=== PATIENT | female | born 1985 | race Caucasian/White ===

== ENCOUNTER 2018-06-04 03:22 | Emergency (ER) | payer MEDICAID ==
[~2018-06-04] VITALS: Ht 172.7 cm; Wt 131.5 kg
[2018-06-04 03:25] VITALS: BP_SYST 122
[2018-06-04] MEDS ORDERED: MORPHINE 4 MG/ML INJ. SYRINGE IVP ONE ×2 (03:30→03:45)
[2018-06-04] MEDS ORDERED: LORazepam 2 MG/ML VIAL (FOR ER USE) IVP ONE (03:45)
== END 2018-06-04 05:05 | disposition home or self-care (01) ==
LOC: SED 03:22
DX: S43.005A Unspecified dislocation of left shoulder joint, initial encounter (principal); W10.9XXA Fall (on) (from) unspecified stairs and steps, initial encounter; Y93.89 Activity, other specified; Y92.009 Unspecified place in unspecified non-institutional (private) residence as the place of occurrence of the external cause; Y99.8 Other external cause status
CPT/HCPCS: 23650; 73030; 99285; J2060; J2270

== ENCOUNTER 2021-08-09 02:58 | Emergency (ER) | payer BC, MEDICAID ==
[~2021-08-09] VITALS: Ht 172.7 cm; Wt 131.5 kg
[2021-08-09 02:58] VITALS: BP_SYST 109
[2021-08-09] MEDS ORDERED: MORPHINE 4 MG INJ. 4 MG/ML VIAL ONE (04:00)
[2021-08-09] MEDS ORDERED: MORPHINE 4 MG INJ. 4 MG/ML VIAL IM ONE (04:00)
[2021-08-09] MEDS ORDERED: DIAZEPAM 5 MG TABLET (VALIUM) PO ONE (04:30)
[2021-08-09 04:46] LABS: BASOPHILS # (AUTO) 0.1 K/uL (0.0-0.2); BASOPHILS % (AUTO) 0.9 % (0.0-2.0); EOSINOPHILS # (AUTO) 0.1 K/uL (0.0-0.4); EOSINOPHILS % (AUTO) 0.8 % (0.0-4.0); HEMATOCRIT 36.8 % (36-48); HEMOGLOBIN 11.4 g/dL (12.0-16.0); LYMPHOCYTES # (AUTO) 1.9 K/uL (1.0-5.5); LYMPHOCYTES % (AUTO) 15.4 % (20.5-51.5); MEAN CORPUSCULAR HEMOGLOBIN 22 pg (27-31); MEAN CORPUSCULAR HGB CONC 31 % (32-36); MEAN CORPUSCULAR VOLUME 70 fL (79.0-98.0); MONOCYTES # (AUTO) 0.7 K/uL (0.0-1.0); MONOCYTES % (AUTO) 5.6 % (1.7-9.3); NEUTROPHILS # (AUTO) 9.4 K/uL (1.8-7.7); NEUTROPHILS % (AUTO) 77.3 % (40.0-70.0); PLATELET COUNT (AUTO) 350 K/uL (130-430); RED BLOOD CELL COUNT(AUTO) 5.25 MIL/uL (4.2-6.2); RED CELL DISTRIBUTION WIDTH 17.9 % (9.0-15.0); WHITE BLOOD COUNT (AUTO) 12.2 K/uL (4.8-10.8)
[2021-08-09 05:04] LABS: CALCIUM 8.9 mg/dL (8.4-11.0); CREATININE 0.83 mg/dL (0.55-1.30); POTASSIUM 3.8 mmol/L (3.5-5.1)
[2021-08-09 05:08] LABS: PHOSPHORUS 3.7 mg/dL (2.7-4.5)
[2021-08-09] MEDS ORDERED: KETOROLAC TROMETHAMINE 30 MG VIAL IM ONE (05:30)
[2021-08-09] MEDS ORDERED: NACL 0.9% 1,000 ML IV ONE (06:15)
[2021-08-09] MEDS ORDERED: IBUP-1971 PO (06:33)
[2021-08-09] MEDS ORDERED: CYCL10TA24 PO (06:33)
[2021-08-09] MEDS ORDERED: HYDR-3917 PO (06:33)
[2021-08-09] MEDS ORDERED: fentaNYL CITRATE/PF 100 MCG/2 ML AMP IM ONE (06:45)
[2021-08-09 06:50] VITALS: BP_SYST 119
[2021-08-09 07:31] LABS: BILIRUBIN,URINE NEGATIVE (NEGATIVE); BLOOD, URINE 2+ (NEGATIVE); CLARITY/URINE TURBID (CLEAR); COLOR,URINE YELLOW (YELLOW); GLUCOSE,URINE NEGATIVE (NEGATIVE); KETONES,URINE NEGATIVE (NEGATIVE); LEUKOCYTE ESTERASE ,URINE NEGATIVE (NEGATIVE); NITRITE, URINE NEGATIVE (NEGATIVE); PROTEIN URINE NEGATIVE (NEGATIVE); UROBILINOGEN,URINE 0.2 (0.2-1.0)
[2021-08-09 07:46] LABS: BACTERIA,URINE FEW /HPF (None Seen); URINE AMORPHOUS URATE 2+ /HPF (None Seen); WBC,URINE 0-3 /HPF (0-3)
== END 2021-08-09 06:50 | disposition home or self-care (01) ==
LOC: SED 02:58
DX: M25.551 Pain in right hip (principal)
CPT/HCPCS: 36415; 80048; 81000; 81025; 83735; 84100; 85025; 96372; 99284; J1885; J2270; J3010